=== PATIENT | female | born 1990 | race Caucasian/White ===

== ENCOUNTER 2019-09-05 09:06 | Emergency (ER) | payer MEDICAID ==
[2019-09-05 09:18] VITALS: BP 149/68
[2019-09-05] MEDS ORDERED: PENICILLIN V POTASSIUM 500 MG TABLET PO ONE (09:56)
[2019-09-05] MEDS ORDERED: KETOROLAC TROMETHAMINE 60 MG/2 ML SDV IM ONE (09:56)
--- NOTE | 2019-09-05 10:01 | ER Document Report ---
HPI - HPI Time Seen by Provider: 09/05/19 09:47 Pain Level: 5 Context: Patient is a 29-year-old female presents emergency department with a chief complaint of left upper dental pain. Patient reports this woke up around 1 AM this morning. Patient denies recent dental injury or broken tooth. Patient does take iron as she does have a history of anemia. Patient reports she did take naproxen at home. Patient reports the left dental pain radiates into her jaw and left ear. Patient denies facial swelling, difficulty breathing or swallowing. - REPRODUCTIVE Reproductive: DENIES: : Past Medical History - General Information source: Patient, Parent - Social History Smoking Status: Former Smoker Chew tobacco use (# tins/day): No Frequency of alcohol use: None Drug Abuse: None Lives with: Family Family History: None Patient has suicidal ideation: No Patient has homicidal ideation: No - Past Medical History Cardiac Medical History: Reports: None Pulmonary Medical History: Reports: None EENT Medical History: Reports: None Neurological Medical History: Reports: None Endocrine Medical History: Reports: None Renal/ Medical History: Reports: None Malignancy Medical History: Reports: None GI Medical History: Reports: None Musculoskeletal Medical History: Reports None Skin Medical History: Reports None Psychiatric Medical History: Reports: None Traumatic Medical History: Reports: None Infectious Medical History: Reports: None Surgical Hx: Negative Vertical Provider Document - CONSTITUTIONAL Agree With Documented VS: Yes Exam Limitations: No Limitations General Appearance: No Apparent Distress - INFECTION CONTROL TRAVEL OUTSIDE OF THE [place] IN LAST 30 DAYS: No - HEENT HEENT: Atraumatic, Normocephalic, PERRLA Mouth Diagram: 1 - Tenderness to left upper posterior tooth with palpation. No erythema or palpable abscess. - NECK Neck: Normal Inspection - RESPIRATORY Respiratory: Breath Sounds Normal, No Respiratory Distress - CARDIOVASCULAR Cardiovascular: Regular Rate, Regular Rhythm - GI/ABDOMEN Gastrointestinal: Abdomen Soft, Abdomen Non-Tender, Normal Bowel Sounds - MUSCULOSKELETAL/EXTREMETIES Musculoskeletal/Extremeties: FROM - NEURO Level of Consciousness: Awake, Alert, Appropriate - DERM Integumentary: Warm, Dry, No Rash Course - Vital Signs Vital signs: Temp Pulse Resp BP Pulse Ox 97.8 F 96 18 149/68 H 96 09/05/19 09:16 09/05/19 09:16 09/05/19 09:16 09/05/19 09:16 09/05/19 09:16 Discharge - Discharge Clinical Impression: Pain, dental Condition: Stable Disposition: HOME, SELF-CARE Instructions: Dentist, Toothache ([facility] / [facility]), Penicillin V K ([facility] / [facility]) Additional Instructions: *You are seen in the emergency department for left upper dental pain. At this time there is no evidence of an abscess around the gum. We will place you on oral antibiotics. You will be on this medication for 10 days. Please follow-up with a dentist, call them today to schedule a follow-up appointment. Take your 800 mg ibuprofen at home as needed for pain. We have given you a Toradol injection here in the emergency department. Please wait 6 to 8 hours prior to taking an 800 mg ibuprofen. If you are taken ibuprofen please avoid all other NSAIDs such as Aleve, aspirin. Please return to the emergency department if you develop a high fever with chills, worsening pain, facial swelling. Dental Infection or Abscess You have an infection, perhaps an abscess (pus formation) of the gum around one of your teeth, which is probably decayed. If there is an abscess, it may drain on its own or it may need to be opened or lanced. Severe swelling or drainage around a tooth usually means a deep dental abscess which usually requires evaluation and treatment by a dentist or oral surgeon. Antibiotics may be prescribed while awaiting dental treatment. If you develop high fever with chills, worsening pain, or increasing swelling in the area, see a dentist or oral surgeon immediately or return to the Emergency Department immediately. Prescriptions: Ibuprofen [Motrin 800 mg Tablet] 800 mg PO Q8H PRN #30 tab PRN Reason:
== END 2019-09-05 10:15 | disposition home or self-care (01) ==
LOC: ER 09:06
DX: K08.9 Disorder of teeth and supporting structures, unspecified (principal)
CPT/HCPCS: J1885; J3490